=== PATIENT | male | born 1960 | race Caucasian/White ===

== ENCOUNTER → 2020-04-06 | Outpatient (CLI) | payer BC ==
[~2020-04-06] MED LIST: ALBU90OI INH; ALPR.25 PO; BASAGLAR K100 UNIT/1 SC; BENZ100A PO; DECADRON6 MG PO; Humalog100 UNIT/1; INSULANPEN; INSULIN LI100 UNIT/5 SC; LISINOPRIL-HCT1 EACH PO; METF500 PO; METFORMIN HCL1000 M3 PO; OXYACE5T PO; PROM25; XANAX0.25 MG PO; ZESTORETIC 20-121 EA PO; ZOLP5
== END | disposition home or self-care (01) ==
LOC: LAB SHORT 12:55 → LAB SRC 12:55 → LAB FUT 04-05 16:00
DX: E11.29 Type 2 diabetes mellitus with other diabetic kidney complication (principal)
CPT/HCPCS: 82043

== ENCOUNTER 2023-04-29 12:09 | Emergency (ER) | payer OTHER ==
[~2023-04-29] VITALS: Ht 172.7 cm; Wt 113.4 kg
[2023-04-29] MEDS ORDERED: ISOSORBIDE MONO30 MG PO (12:55)
[2023-04-29] MEDS ORDERED: BASAGLAR K100 UNIT/3 SC (12:55)
[2023-04-29] MEDS ORDERED: ATOR40TA PO (12:57)
[2023-04-29] MEDS ORDERED: METO50ER PO (12:57)
[2023-04-29 12:59] LABS: BASOPHILS ABSOLUTE AUTO 0.08 K/mm3 (0.00-0.23); BASOPHILS PERCENT AUTO 1 % (0-2); EOSINOPHILS ABSOLUTE AUTO 0.43 K/mm3 (0.00-0.68); EOSINOPHILS PERCENT AUTO 5 % (0-6); Hematocrit 40.8 % (37.0-53.0); Hemoglobin 13.8 g/dL (13.5-17.5); IMMATURE GRAN ABSOLUTE AUTO 0.05 K/mm3 (0.00-0.10); IMMATURE GRAN PERCENT AUTO 1 % (0-1); LYMPHOCYTES ABSOLUTE AUTO 2.27 K/mm3 (0.84-5.20); LYMPHOCYTES PERCENT AUTO 28 % (21-46); MONOCYTES ABSOLUTE AUTO 0.87 K/mm3 (0.16-1.47); MONOCYTES PERCENT AUTO 11 % (4-13); Mean Corpuscular HGB 28.2 pg (26.0-34.0); Mean Corpuscular HGB Conc 33.8 g/dL (31.5-36.5); Mean Corpuscular Volume 83 fL (80-100); Mean Platelet Volume 9.9 fL (9.1-12.4); NEUTROPHILS ABSOLUTE AUTO 4.29 K/mm3 (1.96-9.15); NEUTROPHILS PERCENT AUTO 54 % (41-73); Platelet Count 231 K/mm3 (150-400); RDW Standard Deviation 39.2 fL (35.1-46.3); White Blood Cell Count 7.99 K/mm3 (4.00-11.30)
[2023-04-29 13:38] LABS: Albumin, Blood 3.7 g/dL (3.4-5.0); Albumin/Globulin Ratio 0.9 (0.8-1.8); Bilirubin, Total 0.5 mg/dL (0.1-1.0); Bun/Creatinine Ratio 23.8 (12.0-20.0); Creatinine, Blood 0.88 mg/dL (0.60-1.20); Potassium, Blood 4.4 mmol/L (3.5-5.5); Total Protein, Blood 7.7 g/dL (6.4-8.2)
[2023-04-29] MEDS ORDERED: ONDA4ODT MM (14:53)
[2023-04-29] MEDS ORDERED: AMOCLA875 PO (14:53)
[2023-04-29] MEDS ORDERED: MORP15ER PO (14:53)
[2023-04-29 15:08] VITALS: BP 98/56
== END 2023-04-29 15:08 | disposition home or self-care (01) ==
LOC: ER 12:09
PROVIDERS: Student in an Organized Health Care Education/Training Program
DX: K57.32 Diverticulitis of large intestine without perforation or abscess without bleeding (principal); E11.9 Type 2 diabetes mellitus without complications; I10 Essential (primary) hypertension; Z79.84 Long term (current) use of oral hypoglycemic drugs; Z79.4 Long term (current) use of insulin; Z79.899 Other long term (current) drug therapy; Z86.16 Personal history of COVID-19
CPT/HCPCS: 74177; 80053; 83690; 85025; 96361; 96374-59; 99284-25; A9270; J1885; J7030; Q9967